=== PATIENT | female | born 1975 | race Caucasian/White ===

== ENCOUNTER 2019-11-16 14:34 | Inpatient (IN) | payer MEDICAID ==
[~2019-11-16] VITALS: Ht 162.6 cm; Wt 106.4 kg
[~2019-11-16 14:34] MED LIST: ALBU18HF INH; CLIN150C14 PO; FLUT1DIS IH; METH10TA2 PO; Magnesium Oxide PO; NICO-487 TD; TRAM50TA2 PO
[2019-11-16 16:16] LABS: BASOPHILS # (AUTO) 0.03 x10^3/uL (0-0.1); BASOPHILS % (AUTO) 0 % (0-1); EOSINOPHILS # (AUTO) 0.01 x10^3/uL (0-0.4); EOSINOPHILS % (AUTO) 0 % (1-7); LYMPHOCYTES # (AUTO) 1.23 x10^3/uL (1-3.4); LYMPHOCYTES % (AUTO) 14 % (22-44); MD NO; MEAN CORPUSCULAR HEMOGLOBIN 32.8 pg (27.0-34.8); MEAN CORPUSCULAR VOLUME 96.5 fL (80-100); MEAN PLATELET VOLUME 7.7 fL (7.4-10.4); MONOCYTES # (AUTO) 0.64 x10^3/uL (0.2-0.8); MONOCYTES % (AUTO) 7 % (2-9); NEUTROPHILS # (AUTO) 7.15 x10^3/uL (1.8-6.8); NEUTROPHILS % (AUTO) 79 % (42-75); PLATELET COUNT 142 x10^3/uL (130-400); RED BLOOD COUNT 4.56 x10^6/uL (3.82-5.3); RED CELL DISTRIBUTION WIDTH 14.6 % (9.6-15.2)
--- NOTE | 2019-11-16 16:16 | NUR ---
FIRST CONTACT WITH PT. PT HAS CO UPPER LEG REDNESS, PAIN, SWELLING, STARTED YESTERDAY AM. PT DENIES ANY OTHER SX. PT'S AOX4. RESPS EVEN AND UNLABORED. BP/SPO2 MONITORS IN PLACE. CALL LIGHT WITHIN REACH. WARM BLANKET GIVEN.
--- NOTE | 2019-11-16 17:02 | NUR ---
PT RESTING IN [facility]. PT'S AOX4. RESPS EVEN AND UNLABORED. BP/SPO2 MONITORS IN PLACE. CALL LIGHT WITHIN REACH. [place].
--- NOTE | 2019-11-16 17:49 | NUR ---
PIV EST ON R FOREARM WITH NO COMPLICATIONS AT THIS TIME.
[2019-11-16] MEDS ORDERED: ONDANSETRON 2MG/ML, 2ML ONE (17:58)
[2019-11-16] MEDS ORDERED: MORPHINE SULFATE 4 MG/ML, 1ML ONE (17:58)
[2019-11-16] MEDS ORDERED: ONDANSETRON 2MG/ML, 2ML IVPush ONE (18:00)
[2019-11-16] MEDS ORDERED: PIPERACILLIN/TAZO/PMX 3.375GM 50 ML IV ONE (18:00)
[2019-11-16] MEDS ORDERED: VANCOMYCIN 2,000 MG in SODIUM CHLORIDE 0.9% 500 ML IV ONE (18:00)
[2019-11-16] MEDS ORDERED: MORPHINE SULFATE 4 MG/ML, 1ML IVPush PRN (18:00)
[2019-11-16] MEDS ORDERED: VANCOMYCIN PER PHARMACY MC PRN (18:00)
--- NOTE | 2019-11-16 18:15 | NUR ---
REPORT GIVEN TO JOSE ROBERTO SHIRLEY.
--- NOTE | 2019-11-16 18:24 | NUR ---
RECEIVED REPORT FROM JERMAIN SHIRLEY. SPOKE TO CORAZON PATEL AND UNASYN TO BE GIVEN ONLY FOR RIGHT NOW AND NOT T GIVEN ZOSYN OR VANCO. PT MEDICATED FOR PAIN.
[2019-11-16] MEDS ORDERED: BISACODYL 10 MG SUPP PR PRN (18:30)
[2019-11-16] MEDS ORDERED: POLYETHYLENE GLYCOL 17 GM PACKET PO PRN (18:30)
[2019-11-16] MEDS ORDERED: ONDANSETRON ODT 4 MG PO PRN (18:30)
[2019-11-16] MEDS: AMPICILLIN/SULBACTAM 3 GM in SODIUM CHLORIDE 0.9% 100 ML IV SCH (19:02)
--- NOTE | 2019-11-16 19:02 | NUR ---
ANTIBIOTICS STARTED AFTER BLOOD CULTURES X 2 WERE DRAWN.
[2019-11-16 20:00] VITALS: BP 101/64
[2019-11-16] MEDS: SODIUM CHLORIDE 0.9% 1,000 ML IV SCH (21:08)
[2019-11-16] MEDS: HEPARIN 5,000 UNITS/ML, 1ML SQ SCH (21:09)
[2019-11-16] MEDS: NICOTINE 21 MG/24 HR PATCH.TD24 TD SCH (21:09)
[2019-11-16] MEDS ORDERED: ASPI-496 PO (22:49)
[2019-11-16] MEDS: morphine SULFATE 10 MG/ML, 1ML IVPush PRN (22:57)
[2019-11-17] MEDS: AMPICILLIN/SULBACTAM 3 GM in SODIUM CHLORIDE 0.9% 100 ML IV SCH ×4 (01:18→20:44)
[2019-11-17 01:47] VITALS: BP 113/54
[2019-11-17] MEDS: ACETAMINOPHEN 325 MG TABLET PO PRN (01:57)
[2019-11-17] MEDS: KETOROLAC 30 MG/1 ML IV PRN ×2 (02:56→11:43)
[2019-11-17 05:29] LABS: BASOPHILS # (AUTO) 0.05 x10^3/uL (0-0.1); BASOPHILS % (AUTO) 1 % (0-1); EOSINOPHILS # (AUTO) 0.04 x10^3/uL (0-0.4); EOSINOPHILS % (AUTO) 1 % (1-7); LYMPHOCYTES # (AUTO) 1.17 x10^3/uL (1-3.4); LYMPHOCYTES % (AUTO) 16 % (22-44); MD NO; MEAN CORPUSCULAR HEMOGLOBIN 32.7 pg (27.0-34.8); MEAN CORPUSCULAR VOLUME 96.2 fL (80-100); MEAN PLATELET VOLUME 7.5 fL (7.4-10.4); MONOCYTES # (AUTO) 0.73 x10^3/uL (0.2-0.8); MONOCYTES % (AUTO) 10 % (2-9); NEUTROPHILS # (AUTO) 5.57 x10^3/uL (1.8-6.8); NEUTROPHILS % (AUTO) 74 % (42-75); PLATELET COUNT 122 x10^3/uL (130-400); RED BLOOD COUNT 4.13 x10^6/uL (3.82-5.3); RED CELL DISTRIBUTION WIDTH 15.2 % (9.6-15.2)
[2019-11-17 05:41] LABS: ANION GAP 8 mmol/L (5-15); CALCIUM 8.2 mg/dL (8.5-10.1); CHLORIDE 99 mmol/L (98-107)
[2019-11-17] MEDS: HEPARIN 5,000 UNITS/ML, 1ML SQ SCH ×3 (05:41→20:35)
[2019-11-17 05:42] LABS: CREATININE 0.94 mg/dL (0.55-1.02)
[2019-11-17] MEDS: morphine SULFATE 10 MG/ML, 1ML IVPush PRN ×2 (08:20→14:58)
[2019-11-17] MEDS: SENNA/DOCUSATE TABLET PO SCH (09:00)
[2019-11-17 09:28] VITALS: BP 120/84
[2019-11-17] MEDS: POTASSIUM CHLORIDE 20 MEQ TAB.ER.PRT PO SCH (11:38)
[2019-11-17] MEDS: SODIUM CHLORIDE 0.9% 1,000 ML IV SCH (11:38)
[2019-11-17 15:11] VITALS: BP 97/64
[2019-11-17 20:35] VITALS: BP 133/86
[2019-11-17] MEDS: NICOTINE 21 MG/24 HR PATCH.TD24 TD SCH (20:44)
[2019-11-17] MEDS ORDERED: LORazepam 0.5MG TABLET PO PRN (21:00)
[2019-11-18 01:32] VITALS: BP 93/62
[2019-11-18] MEDS: SODIUM CHLORIDE 0.9% 1,000 ML IV SCH ×3 (01:34→21:03)
[2019-11-18] MEDS: morphine SULFATE 10 MG/ML, 1ML IVPush PRN ×2 (01:35→15:02)
[2019-11-18] MEDS: AMPICILLIN/SULBACTAM 3 GM in SODIUM CHLORIDE 0.9% 100 ML IV SCH (02:45)
[2019-11-18] MEDS: HEPARIN 5,000 UNITS/ML, 1ML SQ SCH ×3 (04:32→21:02)
[2019-11-18] MEDS: ACETAMINOPHEN 325 MG TABLET PO PRN (04:32)
[2019-11-18 06:00] LABS: ANION GAP 9 mmol/L (5-15); CHLORIDE 104 mmol/L (98-107); CREATININE 0.81 mg/dL (0.55-1.02)
[2019-11-18 07:04] VITALS: BP 117/76
[2019-11-18] MEDS: SENNA/DOCUSATE TABLET PO SCH (09:00)
[2019-11-18] MEDS: DOXYCYCLINE 100MG TABLET PO SCH ×2 (09:37→21:02)
[2019-11-18] MEDS: POTASSIUM CHLORIDE 20 MEQ TAB.ER.PRT PO SCH (09:37)
[2019-11-18] MEDS: KETOROLAC 30 MG/1 ML IV PRN ×2 (11:30→23:20)
[2019-11-18 13:32] VITALS: BP 121/88
[2019-11-18] MEDS ORDERED: LORazepam 2 MG/ML, 1ML IVPush PRN (18:30)
[2019-11-18] MEDS: CHLORDIAZEPOXIDE 10 MG CAPSULE PO PRN (19:29)
[2019-11-18 20:24] VITALS: BP 127/84
[2019-11-18] MEDS: NICOTINE 21 MG/24 HR PATCH.TD24 TD SCH (21:02)
[2019-11-19 01:16] VITALS: BP 138/84
[2019-11-19] MEDS: ACETAMINOPHEN 325 MG TABLET PO PRN ×2 (01:29→12:23)
[2019-11-19] MEDS: CHLORDIAZEPOXIDE 10 MG CAPSULE PO PRN (02:51)
[2019-11-19] MEDS: morphine SULFATE 10 MG/ML, 1ML IVPush PRN (02:51)
[2019-11-19] MEDS: HEPARIN 5,000 UNITS/ML, 1ML SQ SCH ×2 (05:00→13:00)
[2019-11-19 07:07] VITALS: BP 119/82
[2019-11-19] MEDS: SODIUM CHLORIDE 0.9% 1,000 ML IV SCH (08:00)
[2019-11-19] MEDS: DOXYCYCLINE 100MG TABLET PO SCH (08:22)
[2019-11-19] MEDS: KETOROLAC 30 MG/1 ML IV PRN (08:23)
[2019-11-19] MEDS: SENNA/DOCUSATE TABLET PO SCH (08:23)
[2019-11-19] MEDS: POTASSIUM CHLORIDE 20 MEQ TAB.ER.PRT PO SCH (08:23)
[2019-11-19] MEDS ORDERED: DOXY100T PO (09:33)
[2019-11-19] MEDS ORDERED: HYDR-826 PO (11:05)
== END 2019-11-19 13:05 | disposition home or self-care (01) | DRG 603 ==
LOC: ED 17:45 → EDIP 18:06 → 3N 19:41 → DCLOUNGE 11-19 12:25
PROVIDERS: ADMIT Internal Medicine; ATTEND Hospitalist
DX: L03.116 Cellulitis of left lower limb (principal); F10.10 Alcohol abuse, uncomplicated; R00.0 Tachycardia, unspecified; F15.10 Other stimulant abuse, uncomplicated; J45.909 Unspecified asthma, uncomplicated; F17.210 Nicotine dependence, cigarettes, uncomplicated; Z88.0 Allergy status to penicillin; Z88.5 Allergy status to narcotic agent; Z79.899 Other long term (current) drug therapy; Z79.82 Long term (current) use of aspirin
CPT/HCPCS: 36415; 80048; 83605; 83880; 85025; 87040; 93005; 96374; 96375; G0378; J0295; J1644; J1885; J2405; J2270; J7030